=== PATIENT | female | born 1980 | race Asian ===

== ENCOUNTER → 2017-02-02 | Outpatient (CLI) | payer OTHER ==
--- NOTE | ~2017-02-02 | CR58 ---
[facility] A Service of [facility] RADIOLOGY TEXT RESULTS PATIENT: FELICIA MARVIN LOCATION: [facility] : [id number] UNIT #: [id number] AGE: [address]: Rad Das MD SEX: F ORDER DR: [id number] [address] [address] [id number] O MR#: [id number] Acc #: [id number] NAME: FELICIA MARVIN : 1980 SEX: F STUDY DATE/TIME: 02/02/2017 UNIT: [facility] ROOM: STUDY DESCRIPTION: CR Cervical Spine 2 or 3 Views Attending Physician: Rad Das M.D. Referring Physician: Rad Das M.D. Ordering Physician: Rad Das M.D. Primary Care Physician: Rad Das M.D. MEDICAL IMAGING REPORT This report is preliminary unless electronic signature is present EXAM Cervical spine series, 02/02/2017, 09:06 hours. HISTORY 36-year-old woman complaining of 2-month history of posterior neck pain radiating to both arms with tingling in thumbs, right greater than left. No reported injury. COMPARISON None FINDINGS AP, open-mouth, lateral view and a lateral swimmers view were performed. C1-T1 are imaged. There is no prevertebral soft tissue swelling. Vertebral body and disc heights are normal. There is mild straightening of the spine, but no fracture or disc height loss. IMPRESSION Negative cervical spine series. Dictated by... Radha Crowe M.D. THIS IS AN ELECTRONICALLY VERIFIED REPORT Radha Crowe M.D. at 02/03/2017 9:11 AM RAE/andrés TD: 02/02/2017 17:56 JOB #: [id number] MEDICAL IMAGING REPORT [facility] A Service of [facility] RADIOLOGY TEXT RESULTS PATIENT: FELICIA MARVIN LOCATION: [facility] : [id number] UNIT #: [id number] AGE: [address]: Rad Das MD SEX: F ORDER DR: Page 1 of 1 COPY
== END | disposition home or self-care (01) ==
LOC: CRAD 08:40
DX: M54.12 Radiculopathy, cervical region (principal)
CPT/HCPCS: 72040